=== PATIENT | female | born 1995 | race African-American/Black ===

== ENCOUNTER 2021-08-15 13:06 | Emergency (ER) | payer MEDICAID ==
[~2021-08-15] VITALS: Ht 175.3 cm; Wt 90.7 kg
[2021-08-15 13:32] VITALS: BP 122/80
--- NOTE | 2021-08-15 13:36 | NUR ---
PT BIB ALS RUN C/C SEIZURE. PT WAS SEEN AT [facility] LAST NIGHT FOR SZ DC THIS AM. PT HAD 2 WITNESSED SEIZURE TONIC CLONIC. PT POST ICTAL GCS 14. NO ORAL TRAUMA NO URINARY INCONTINENCE. 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
[2021-08-15 15:33] VITALS: BP 122/80
--- NOTE | 2021-08-15 15:33 | NUR ---
Patient discharged with v/s stable. Written and verbal after care instructions given and explained. Patient verbalized understanding. Ambulatory with steady gait. All questions addressed prior to discharge. Advised to follow up with PMD.
== END 2021-08-15 15:34 | disposition home or self-care (01) ==
LOC: MED 13:06
DX: R56.9 Unspecified convulsions (principal)
CPT/HCPCS: 99283